=== PATIENT | female | born 1945 | race Caucasian/White ===

== ENCOUNTER → 2016-11-16 | Outpatient (CLI) | payer MEDICARE, OTHER ==
[~2016-11-16] MED LIST: ASPI81TA28 PO; CALC8.5C PO; CHOL100010 PO; ONDA4TAB10 SL; ONDA4TAB46 PO; OXYC-609 PO; PANT40TA PO; PROC1TAB5 PO; SIMV10TA5 PO
--- NOTE | 2016-11-16 16:47 | MAMMOGRAPHY REPORT ---
BILATERAL DIGITAL SCREENING MAMMOGRAM TOMOSYNTHESIS WITH CAD: 11/16/2016 CLINICAL HISTORY: Routine screening. Patient has no complaints. TECHNIQUE: Breast tomosynthesis in addition to standard 2D mammography was performed. Current study was also evaluated with a Computer Aided Detection (CAD) system. COMPARISON: Comparison is made to exams dated: 11/15/2015 mammogram, 11/14/2014 mammogram, 12/11/2014 aspiration, 11/13/2013 mammogram, 11/11/2012 mammogram, and 11/11/2011 mammogram - [facility]. BREAST COMPOSITION: The tissue of both breasts is heterogeneously dense, which may obscure small ma sses. FINDINGS: There are scattered coarse, round and punctate microcalcifications throughout the breasts. No new suspicious mass, architectural distortion or cluster of microcalcifications is seen. IMPRESSION: ACR BI-RADS CATEGORY 1: NEGATIVE There is no mammographic evidence of malignancy. A 1 year screening mammogram is recommended. The p atient will receive written notification of the results. Approximately 10% of breast cancers are not detected with mammography. A negative mammographic repor t should not delay biopsy if a clinically suggestive mass is present. Dania Thomson M.D. ay/:11/16/2016 16:23:41 Aircraft Cleaner: Yamel LOPEZ([place])(M), [facility] letter sent: Normal 1/2 BI-RADS Code: ACR BI-RADS Category 1: Negative
== END | disposition home or self-care (01) ==
LOC: C.MAMM 10:21
PROVIDERS: ATTEND Obstetrics & Gynecology
DX: Z12.31 Encounter for screening mammogram for malignant neoplasm of breast (principal)

== ENCOUNTER 2016-12-26 11:52 | Emergency (ER) | payer MEDICARE, OTHER ==
[~2016-12-26] VITALS: Ht 167.6 cm; Wt 62.8 kg
[~2016-12-26 11:52] MED LIST changes: -ONDA4TAB10 SL; -OXYC-609 PO; -PROC1TAB5 PO
[2016-12-26 11:54] VITALS: TEMP 36.5; Ht 167.6 cm; Wt 62.8 kg
[2016-12-26] MEDS ORDERED: PROC1TAB5 PO (12:01)
[2016-12-26] MEDS ORDERED: OXYC-609 PO (12:04)
[2016-12-26] MEDS ORDERED: ONDANSETRON INJ 2 MG/ML 2 ML VIAL IV STA (12:22)
[2016-12-26] MEDS ORDERED: SODIUM CHLORIDE 0.9% 1000ML 1,000 ML IV STA ×2 (12:22→14:05)
[2016-12-26] MEDS ORDERED: SODIUM CHLORIDE 0.9% 1000ML 1,000 ML IV ONE (12:22)
--- NOTE | 2016-12-26 12:38 | EMERGENCY ROOM VISIT NOTE ---
History Report prepared by Gregorio: Nikolas Genao Under the Supervision of: Dr. Marlon Osorio M.D. First contact with patient: 12:14 Chief Complaint: VOMITING Stated Complaint: DRY HEAVES History of Present Illness The patient is a 71 year old female who presents to the Emergency Room with complaints of recurrent vomiting for the past four days. The patient started feeling nauseous and dry heaving four nights ago. The patient was feeling fine the next day until the nighttime when she started vomiting. The patient did not vomit two days ago but started to vomit again last night. The patient also complains of intermittent diarrhea and upper abdominal pain. She had Compazine at midnight as well as Oxycodone and Protonix. The patient has been to the ED before for intractable vomiting. She was last here in July. The patient's vomit has been bile-like. The patient denies any headaches, chest pain, shortness of breath, coughing, black or blood stools or vomit, or urinary symptoms. Specifically denies dysuria or hematuria or back pain The patient has a history of Mantle Cell Lymphoma. She is not currently on chemotherapy but was last treated over one year ago. She was last scoped in November which showed that her cancer was dormant. Source of History: patient, spouse/significant other Onset: four days ago Position: other (GI) Quality: other (vomiting) Timing: other (recurrent) Associated Symptoms: + abdominal pain, + diarrhea, + nausea, No SOB, No chest pain, No cough, No headache, No hematochezia, No melena, No urinary symptoms Review of Systems See HPI for pertinent positives & negatives. A total of 10 systems reviewed and were otherwise negative. Past Medical & Surgical Medical Problems: (1) Gall bladder disease (2) Gallbladder disease (3) Stomach problems Surgical Problems: (1) H/O: hysterectomy (2) History of lumpectomy of both breasts Old medical records were reviewed. Nurse's notes were reviewed and I agree with. Family History Cancer Gallbladder disease Heart disease Social History Smoking Status: Never Smoker Alcohol Use: none Drug Use: none Marital Status: Housing Status: lives with family Occupation Status: employed Current/Historical Medications Scheduled Aspirin (Aspirin Ec), 81 MG PO Q2D Calcium W/ Vitamins D & K (Viactiv), 1 DOSE PO BID Cholecalciferol (Vitamin D), 1,000 INTER.UNIT PO DAILY Ondasetron Odt (Zofran Odt), 4 MG SL Q6H Pantoprazole (Protonix), 40 MG PO DAILY Simvastatin (Zocor), 10 MG PO HS Scheduled PRN Ondansetron Hcl (Zofran), 4 MG PO Q8H PRN for Nausea Oxycodone HCl (Oxycodone HCl), 5 MG PO Q6 PRN for Pain Prochlorperazine Maleate (Compazine), 10 MG PO Q6H PRN for Nausea Allergies Coded Allergies: Morphine (Unverified Allergy, Severe, SHUT INTESTINES DOWN, 12/26/16) Tramadol (Verified Adverse Reaction, Intermediate, GI SYMPTOMS, 12/26/16) Physical Exam Vital Signs Date Time Temp Pulse Resp B/P Pulse Ox O2 Delivery O2 Flow Rate FiO2 12/26/16 15:25 88 18 145/67 98 12/26/16 11:54 36.5 69 18 172/86 98 Room Air Physical Exam General: Non ill-appearing older female, holding emesis bag, otherwise in no acute distress. HEENT: Normal cephalic atraumatic. Pupils are equal round and reactive to light. Extraocular movements are intact. Oropharynx is pink with moist mucous membranes. No swelling of the mouth lips or tongue. Neck: Supple with a midline trachea. No meningeal signs or stiffness, no JVD or bruits. No Stridor. Chest: Clear to auscultation bilaterally. No wheezes or rhonchi. No increased work of breathing. Heart: regular rate and rhythm. Abdomen: Soft nontender, nondistended without rebound guarding or rigidity. Extremities: No cyanosis clubbing or edema. No calf tenderness or assymetry Spine/Back. Non tender to palpation. No CVA tenderness Skin: Good turgor without rashes. Neurologic exam: Cranial nerves two through 12 are intact. Motor and sensation are intact and symmetrical throughout. Medical Decision & Procedures Laboratory Results 12/26/16 12:40 Red Blood Count 4.88, Mean Corpuscular Volume 87.1, Mean Corpuscular Hemoglobin 29.7, Mean Corpuscular Hemoglobin Concent 34.1, Mean Platelet Volume 8.9, Neutrophils (%) (Auto) 87.7, Lymphocytes (%) (Auto) 9.9, Monocytes (%) (Auto) 2.0, Eosinophils (%) (Auto) 0.0, Basophils (%) (Auto) 0.1, Neutrophils # (Auto) 6.91, Lymphocytes # (Auto) 0.78, Monocytes # (Auto) 0.16, Eosinophils # (Auto) 0.00, Basophils # (Auto) 0.01 12/26/16 12:40 Test 12/26/16 12:40 12/26/16 12:50 12/26/16 13:20 White Blood Count 7.88 K/uL (4.8-10.8) Red Blood Count 4.88 M/uL (4.2-5.4) Hemoglobin 14.5 g/dL (12.0-16.0) Hematocrit 42.5 % (37-47) Mean Corpuscular Volume 87.1 fL (80-100) Mean Corpuscular Hemoglobin 29.7 pg (25-34) Mean Corpuscular Hemoglobin Concent 34.1 g/dl (32-36) Platelet Count 313 K/uL (130-400) Mean Platelet Volume 8.9 fL (7.4-10.4) Neutrophils (%) (Auto) 87.7 % Lymphocytes (%) (Auto) 9.9 % Monocytes (%) (Auto) 2.0 % Eosinophils (%) (Auto) 0.0 % Basophils (%) (Auto) 0.1 % Neutrophils # (Auto) 6.91 K/uL (1.4-6.5) Lymphocytes # (Auto) 0.78 K/uL (1.2-3.4) Monocytes # (Auto) 0.16 K/uL (0.11-0.59) Eosinophils # (Auto) 0.00 K/uL (0-0.5) Basophils # (Auto) 0.01 K/uL (0-0.2) RDW Standard Deviation 42.6 fL (36.4-46.3) RDW Coefficient of Variation 13.3 % (11.5-14.5) Immature Granulocyte % (Auto) 0.3 % Immature Granulocyte # (Auto) 0.02 K/uL (0.00-0.02) Anion Gap 14.0 mmol/L (3-11) Est Creatinine Clear Calc Drug Dose 58.9 ml/min Estimated GFR () 83.4 Estimated GFR (Non- 72.0 BUN/Creatinine Ratio 17.3 (10-20) Calcium Level 9.7 mg/dl (8.5-10.1) Total Bilirubin 0.5 mg/dl (0.2-1) Direct Bilirubin 0.1 mg/dl (0-0.2) Aspartate Amino Transf (AST/SGOT) 10 U/L (15-37) Alanine Aminotransferase (ALT/SGPT) 22 U/L (12-78) Alkaline Phosphatase 92 U/L (45-117) Total Protein 8.3 gm/dl (6.4-8.2) Albumin 4.5 gm/dl (3.4-5.0) Lipase 140 U/L (73-393) Bedside Troponin I 0.000 ng/ml (0-0.045) Urine Color YELLOW Urine Appearance CLOUDY (CLEAR) Urine pH 6.0 (4.5-7.5) Urine Specific [place] 1.020 (1.000-1.030) Urine Protein 2+ (NEG) Urine Glucose (UA) NEG (NEG) Urine Ketones NEG (NEG) Urine Occult Blood TRACE (NEG) Urine Nitrite POS (NEG) Urine Bilirubin NEG (NEG) Urine Urobilinogen NEG (NEG) Urine Leukocyte Esterase MODERATE (NEG) Urine WBC (Auto) >30 /hpf (0-5) Urine RBC (Auto) 0-4 /hpf (0-4) Urine Hyaline Casts (Auto) 10-30 /lpf (0-5) Urine Epithelial Cells (Auto) 5-10 /lpf (0-5) Urine Bacteria (Auto) 4+ (NEG) Laboratory studies as stated above per my review. Medications Administered Medications (Trade) Dose Ordered Sig/Toshia Route Start Time Stop Time Status Last Admin Dose Admin Sodium Chloride 1,000 ml @ 999 mls/hr Q1H1M STAT IV 12/26/16 12:22 12/26/16 13:22 DC 12/26/16 13:15 999 MLS/HR Sodium Chloride (Nss 1000ml) 1,000 ml @ 200 mls/hr Q5H ONCE IV 12/26/16 12:22 12/26/16 16:00 DC 12/26/16 13:18 200 MLS/HR Ondansetron HCl 4 mg 4 mg NOW STAT IV 12/26/16 12:22 12/26/16 12:24 DC 12/26/16 13:18 4 MG Sodium Chloride (Nss 1000ml) 1,000 ml @ 999 mls/hr Q1H1M STAT IV 12/26/16 14:05 12/26/16 15:05 DC 12/26/16 14:18 999 MLS/HR ECG Indication: vomiting Rate (beats per minute): 74 Rhythm: normal sinus Findings: no acute ischemic change, no ectopy Comparison ECG Date: 2015 Change: no significant change ED Course 1215: Past medical records reviewed. The patient was evaluated in room B8, and a complete history and physical examination were performed. 1222: Zofran 4 mg IV, NSS 1000 ml @ 200 mls/hr, NSS 1000 ml @ 999 mls/hr. 1318: The patient is starting to feel better after Zofran. 1405: The patient will be ready for discharge after another liter of fluids. 1405: NSS 1000 ml @ 999 mls/hr. 1510: Reassessed the patient. Discussed the findings with her. She verbalized understanding and agreement of the treatment plan. The patient is ready for discharge. 1515: Zofran Odt 4 mg PO homepack. Medical Decision Differential diagnosis includes dehydration, gastroenteritis, infection, electrolyte or metabolic abnormality, pancreatitis, ACS. This patient comes in as described above. She was placed in room B8. She's been having vomiting for several days off-and-on. She's been seen several times for this before. She does have a history of mantle cell lymphoma however has not had chemotherapy for a year. Besides feeling nauseous, she looks well. On exam, her abdomen is benign and does not suggest peritonitis. IV access was established was hydrated with 1 L IV normal saline bolus and then hourly rate of normal saline. She was given Zofran 4 mg IV. EKG multiple blood testing was obtained. She was reassessed and clammy. She is feeling much better. She did receive additional liter of normal saline IV. She has no significant electrolyte or metabolic abnormalities. She is nothing to suggest suggest sepsis. She's had no lower abdominal tenderness or urinary symptoms. Her urine does have white cells and bacteria does have some epithelial cells as well and with her being asymptomatic and may be a contaminant. We will culture this. She will rest and drink plenty fluids use Zofran if needed for nausea and return if: increasing pain, fever or chills, worsening of symptoms, any new problems or concerns. Impression Primary Impression: Vomiting Additional Impression: Dehydration Scribe Attestation The scribe's documentation has been prepared under my direction and personally reviewed by me in its entirety. I confirm that the note above accurately reflects all work, treatment, procedures, and medical decision making performed by me. Departure Information Dispostion Home / Self-Care Prescriptions Ondasetron Odt (ZOFRAN ODT) 4 Mg Tab 4 MG SL Q6H for Nausea, #14 TAB Prov: Marlon Osorio M.D. 12/26/16 Referrals Heriberto Keane D.O. (PCP) Forms HOME CARE DOCUMENTATION FORM, IMPORTANT VISIT INFORMATION Patient Instructions My [facility] Additional Instructions Rest. Drink plenty of fluids. Slowly advance her diet. Use Zofran 4 mg under the tongue every 6 hours as needed for nausea or vomiting Return if: Worsening of symptoms, not tolerating fluids, fever or chills, chest pain, shortness of breath, any new problems or concerns. Problem Qualifiers
[2016-12-26 12:51] LABS: BASO % 0.1 %; BASO ABS # 0.01 K/uL (0-0.2); COMPLETE YES; HEMATOCRIT 42.5 % (37-47); IG% 0.3 %; LYMPH % 9.9 %; LYMPH ABS # 0.78 K/uL (1.2-3.4); MEAN CELL VOLUME 87.1 fL (80-100); MEAN CORPUSCULAR HEMOGLOBIN 29.7 pg (25-34); MEAN CORPUSCULAR HGB CONC 34.1 g/dl (32-36); MEAN PLATELET VOLUME 8.9 fL (7.4-10.4); NEUT % 87.7 %; PLATELET COUNT 313 K/uL (130-400); RED BLOOD COUNT 4.88 M/uL (4.2-5.4); WHITE BLOOD COUNT 7.88 K/uL (4.8-10.8)
[2016-12-26 13:11] LABS: BUN/CREATININE RATIO 17.3 (10-20); CALCIUM 9.7 mg/dl (8.5-10.1); CREATININE 0.82 mg/dl (0.60-1.20); POTASSIUM 3.4 mmol/L (3.5-5.1)
[2016-12-26 13:39] LABS: URINE APPEARANCE CLOUDY (CLEAR); URINE BILIRUBIN NEG (NEG); URINE COLOR YELLOW; URINE NITRITE POS (NEG); UROBILINOGEN NEG (NEG)
[2016-12-26 13:40] LABS: MANUAL MICROSCOPIC REQUIRED? NO; REVIEW REQ? NO
[2016-12-26] MEDS ORDERED: ONDA4TAB10 SL (14:37)
[2016-12-26] MEDS ORDERED: ONDANSETRON HOME PACK 4MG OD TAB PO ONE (15:15)
[2016-12-26 15:25] VITALS: BP 145/67; PULSE 88; O2SAT 98
--- NOTE | 2016-12-28 12:05 | Pharmacy Progress Note ---
ED Pharmacist Culture FollowUp Date of Service: Dec 28, 2016. This patient was seen in the ER on 12/26/16 w/ c/o intermittent NVD x 4 days. A UA and urine cx were done. The UA was potentially suggestive of infection (> 30WBC, +LE, +N, 4+ bacteria, 5-10 epis) however the patient denied urinary symptoms (no dysuria, no hematuria, no back pain per note). Abdominal exam also reported to be benign per note. No leukocytosis or fever noted. Although pyuria was present on UA this is not always indicative of UTI. Although Urine Cx grew e coli, there is no indication to treat asymptomatic bacteruria in this patient (indications for treatment = , undergoing urologic procedure, s/p renal xplant or neutropenia). No action required.
== END 2016-12-26 15:30 | disposition home or self-care (01) ==
LOC: C.EDB 11:54
DX: R11.2 Nausea with vomiting, unspecified (principal); E86.0 Dehydration; R19.7 Diarrhea, unspecified; R10.9 Unspecified abdominal pain; Z79.82 Long term (current) use of aspirin; Z79.899 Other long term (current) drug therapy

== ENCOUNTER → 2017-11-17 | Outpatient (CLI) | payer MEDICARE, OTHER ==
[~2017-11-17] MED LIST changes: -ONDA4TAB46 PO; +OXYC-609 PO; -PANT40TA PO; +PROC1TAB5 PO
--- NOTE | 2017-11-17 15:38 | MAMMOGRAPHY REPORT ---
BILATERAL DIGITAL SCREENING MAMMOGRAM TOMOSYNTHESIS WITH CAD: 11/17/2017 CLINICAL HISTORY: Routine screening. Patient has no complaints. TECHNIQUE: Breast tomosynthesis in addition to standard 2D mammography was performed. Current study was also evaluated with a Computer Aided Detection (CAD) system. COMPARISON: Comparison is made to exams dated: 11/16/2016 mammogram, 11/15/2015 mammogram, 06/10/2015 m ammogram, 11/14/2014 mammogram, 11/13/2013 mammogram, and 11/11/2012 mammogram - [facility]. BREAST COMPOSITION: The tissue of both breasts is extremely dense, which lowers the sensitivity of m ammography. FINDINGS: There is an asymmetry in the medial, middle one third of the right breast, best seen on CC tomosynthesis slice 28/47, for which additional spot compression tomosynthesis views and possible ul trasound are recommended. Another asymmetry measuring approximately 16 mm is identified in the later al posterior right breast on CC slice 28/47 that could represent normal overlapping fibroglandular ti ssue although additional spot compression tomosynthesis views and possible ultrasound are recommended . A linear scar marker overlies the right upper outer breast, denoting an area of prior surgery. There are scattered benign-appearing calcifications in the breasts. No other suspicious mass, architectura l distortion or cluster of microcalcifications is seen. IMPRESSION: ACR BI-RADS CATEGORY 0: INCOMPLETE EVALUATION: NEED ADDITIONAL IMAGING EVALUATION The asymmetries in the medial and lateral right breast need additional imaging evaluation. The patient will be called to schedule an appointment. Approximately 10% of breast cancers are not detected with mammography. A negative mammographic report should not delay biopsy if a clinically suggestive mass is present. Dania Thomson M.D. ay/:11/17/2017 13:13:23 Horticultural Manager: Yamel LOPEZ([place])(Raejsh), [facility] letter sent: Addl Imaging 0 BI-RADS Code: ACR BI-RADS Category 0: Incomplete Evaluation: Need Additional Imaging Evaluation
== END | disposition home or self-care (01) ==
LOC: C.MAMM 10:36
PROVIDERS: ATTEND Obstetrics & Gynecology
DX: Z12.31 Encounter for screening mammogram for malignant neoplasm of breast (principal); N64.89 Other specified disorders of breast

== ENCOUNTER → 2017-11-26 | Outpatient (CLI) | payer BC ==
--- NOTE | 2017-11-29 07:40 | MAMMOGRAPHY REPORT ---
UNILATERAL RIGHT DIGITAL DIAGNOSTIC MAMMOGRAM TOMOSYNTHESIS AND TARGETED RIGHT ULTRASOUND: 11/26/2017 CLINICAL HISTORY: Callback from screening mammogram for right breast asymmetries. TECHNIQUE: Breast tomosynthesis in addition to standard 2D mammography was performed. Spot compress ion right CC 2-D and tomosynthesis images were obtained. COMPARISON: Comparison is made to exams dated: 11/17/2017 mammogram, 11/16/2016 mammogram, 11/15/2015 m ammogram, 06/10/2015 mammogram, 12/11/2014 mammogram, and 11/22/2014 mammogram - [facility]. BREAST COMPOSITION: The tissue of the right breast is extremely dense, which lowers the sensitivity of mammography. FINDINGS: The previously described asymmetry seen within the right lateral posterior breast effaces o n the additional spot compression views and is benign and compatible with normal fibroglandular tissu e. The previously described asymmetry seen within the right medial breast on the cc view also efface s to a baseline appearance on the additional spot compression views, and has the appearance of normal fibroglandular tissue on the tomosynthesis images. No discrete mass or architectural distortion is noted in this region on the additional images. Targeted ultrasound was performed of the right medial breast in the region of the medial mammographic asymmetry. The background parenchymal echotexture is heterogeneous which reduces the sensitivity of the ultrasound exam. Sonographically normal tissue is seen in this region, without evidence of a ma ss or other suspicious sonographic abnormality. IMPRESSION: ACR BI-RADS CATEGORY 2: BENIGN, TARGETED ULTRASOUND ACR BI-RADS CATEGORY 2: BENIGN The right breast asymmetries efface on the additional spot compression views, without corresponding s onographic abnormality evident. Findings are benign and compatible with normal fibroglandular tissue . There is no mammographic or targeted sonographic evidence of malignancy. A 1 year screening mammog osvaldo is recommended. The patient has been verbally notified of the results. Approximately 10% of breast cancers are not detected with mammography. A negative mammographic report should not delay biopsy if a clinically suggestive mass is present. Kylah Lutz M.D. /:11/26/2017 09:48:05 Optometric Assistant: Lindy LOPEZ([place])(Rajesh), [facility] letter sent: Normal 1/2 BI-RADS Code: ACR BI-RADS Category 2: Benign Ultrasound BI-RADS: ACR BI-RADS Category 2: Benign
== END | disposition home or self-care (01) ==
LOC: C.MAMM 08:48
PROVIDERS: ATTEND Obstetrics & Gynecology
DX: N64.89 Other specified disorders of breast (principal)

== ENCOUNTER → 2018-06-14 | Outpatient (CLI) | payer MEDICARE, OTHER ==
[~2018-06-14] MED LIST changes: +PROC10TA PO; -PROC1TAB5 PO
== END | disposition home or self-care (01) ==
LOC: C.MAMM 10:15
PROVIDERS: ATTEND Obstetrics & Gynecology
DX: M81.0 Age-related osteoporosis without current pathological fracture (principal); M85.89 Other specified disorders of bone density and structure, multiple sites

== ENCOUNTER 2024-05-09 19:49 | Inpatient (IN) ==
[2024-05-09 20:40] LABS: Alanine Aminotransferase 25 U/L (7-52); Albumin Globulin Ratio 1.2 (0.9-2); Albumin Level 3.5 gm/dl (3.4-5.0); Alkaline Phosphatase 86 U/L (34-104); Anion Gap 10 (3-11); Aspartate Aminotransferase 28 U/L (13-39); BUN Creatinine Ratio 12.9 (10-20); Bilirubin,Total 0.6 mg/dl (0.2-1.0); Blood Urea Nitrogen 15 mg/dl (6-23); Calcium 9.1 mg/dl (8.6-10.3); Carbon Dioxide 21 mmol/L (21-32); Chloride 100 mmol/L (98-107); Est GFR (African American) 51.9 ml/min; Est GFR (Non-African American) 44.7 ml/min; Globulin 2.9 gm/dl (2.5-4.0); Glucose 83 mg/dl (70-99(Fasting)); Potassium 4.2 mmol/L (3.5-5.1); Sodium 131 mmol/L (136-145); Total Protein 6.4 gm/dl (6.0-8.3)
[2024-05-09 20:53] LABS: Hematocrit (blood only) 35.5 % (37.0-47.0); Hemoglobin 11.6 g/dl (12.0-16.0); Mean Corpuscular Hemoglobin 28.2 pg (25.0-34.0); Mean Corpuscular Hgb Conc 32.7 g/dL (32.0-36.0); Mean Corpuscular Volume 86.4 fL (80.0-100.0); Mean Platelet Volume 9.7 fL (9.4-12.4); Platelet Count 361 K/uL (130-400); RDW Coefficient of Variation 15.1 % (11.5-14.5); RDW Standard Deviation 47.9 fL (36.4-46.3); Red Blood Count 4.11 M/uL (4.20-5.40); White Blood Count 22.16 K/ul (4.8-10.8)
[2024-05-09 20:56] LABS: ALC (manual) 12.63 K/uL (1.2-3.4); ANC (manual) 8.42 K/uL (1.4-6.5); Lymphocytes # (manual) 4.88 K/uL (1.2-3.4); Lymphocytes % (manual) 22 %; Monocytes # (manual) 1.11 K/uL (0.11-0.59); Monocytes % (manual) 5 %; Neutrophils # (manual) 8.42 K/uL (1.40-6.50); Neutrophils % (manual) 38 %; RBC Morphology Unremarkable; Reactive Lymphocytes # (manual) 7.76 K/uL; Reactive Lymphocytes % (manual) 35 %
[2024-05-09 21:14] LABS: Appearance Urine Cloudy (Clear); Bacteria Urine Automated 4+ (None Seen); Bilirubin Urine Negative (Negative); Blood Urine Trace (Negative); Color Urine Yellow; Epithelial Cell Urine Auto 0-2 /hpf (0-2); Glucose Urine UA Negative (Negative); Ketones Urine Negative (Negative); Leukocyte Esterase Urine 3+ (Negative); Nitrite Urine Negative (Negative); Protein Urine Negative (Negative); RBC Urine Automated 0-2 /hpf (0-2); Specific Gravity Urine 1.005 (1.000-1.030); Urobilinogen Urine Negative (Negative); WBC Urine Automated >50 /hpf (0-5)
[2024-05-09 21:22] LABS: Lyme Screen Rflx Confirmation Positive (Negative)
[2024-05-09 21:56] LABS: Lyme Ab IgG 2nd Tier Confirm Positive (Negative); Lyme Ab IgM 2nd Tier Confirm Positive (Negative)
--- NOTE | 2024-05-09 23:00 | Emergency Department Note ---
History of Present Illness General Chief complaint: Pain (Generalized) Stated complaint: BODYACHES/PAINS, BACK/ARM PAIN, SOME SOB Time Seen by Provider: 05/09/24 22:31 History of Present Illness Maximum Pain Intensity: 5 This is a 79-year-old female presenting to the emergency department for evaluation of full body aches, fatigue, and weakness for the past 2 weeks. Patient describes discomfort in her head, back, and extremities. No injuries or trauma. No fevers or chills. Patient states that she did have tick bites about 2 weeks ago, and feels that she was able to remove the ticks. She has a history of mantle cell lymphoma and is on nightly Jaypirca. She feels like she has been able to eat and drink as normal. She rates her discomfort a 5/10. Home Medications Medication Instructions Recorded Confirmed Type simvastatin 10 mg tablet 10 mg PO HS 10/22/18 05/09/24 History pantoprazole 40 mg tablet,delayed 40 mg PO QAM 12/26/19 05/09/24 History release allopurinol 100 mg tablet 100 mg PO QAM 04/03/24 05/09/24 History calcium 650 mg-vitamin D3 12.5 1 tab PO BID 04/03/24 05/09/24 History mcg-vitamin K 40 mcg chewable tablet (Viactiv) cholecalciferol (vitamin D3) 50 50 mcg PO DAILY 04/03/24 05/09/24 History mcg (2,000 unit) capsule pirtobrutinib 100 mg tablet 200 mg PO HS 04/03/24 05/09/24 History (Jaypirca) Allergies Allergy/AdvReac Type Severity Reaction Status Date / Time morphine Allergy Severe SHUT Verified 05/09/24 23:01 INTESTINES DOWN tramadol AdvReac Intermediate GI SYMPTOMS Verified 05/09/24 23:01 Past Med/Surg History Problem List (Updated 05/10/24 @ 01:16 by Sukh Gifford PA-C) UTI (urinary tract infection) (Acute) Lyme disease (Acute) Generalized pain (Acute) Lesion of tongue Family history of breast cancer Breast cancer screening other than mammogram Extremely dense tissue of both breasts on mammography S/P cholecystectomy Vitamin D deficiency Chronic kidney disease with active medical management without dialysis, stage 3 (moderate) Hypercholesterolemia (Chronic) Encounter for annual routine gynecological examination Failure of outpatient treatment (Acute) Hypokalemia (Acute) Stomach problems (Chronic) Mantle cell lymphoma (Acute) diagnosed 2012--chemo Medical History History of COVID-19 (08/2023) no hosp; resolved Mantle cell lymphoma diagnosed 2012--chemo; takes Jaypirca daily Hypercholesteremia Vitamin D deficiency Acid reflux controlled Restless leg syndrome Slow to wake up after anesthesia CKD (chronic kidney disease), stage III Osteoporosis Osteoarthritis Migraine Hyperlipidemia Left ureteral calculus hx Surgical History History of laryngoscopy microlaryngoscopy with direct biopsy-04/05/24-Dr. Kothari History of needle biopsy left breast--benign Status post cystoscopy with ureteral stent placement History of total hysterectomy with bilateral salpingo-oophorectomy (BSO) h/o endometriosis History of colonoscopy History of esophagogastroduodenoscopy (EGD) History of cholecystectomy 2014 History of nasal septoplasty History of bilateral cataract extraction History of breast lump removal x2 on right breast--benign-1994, 2000 History of surgical removal of ganglion cyst left wrist Family History Father Heart disease Mother Heart disease Sister Breast cancer Brother Prostate cancer Other No family history of adverse response to anesthesia No family history of bleeding disorder No known problems Denies family history of Ovarian cancer Myocardial infarction Colorectal cancer Social History Smoking Status: Never smoker Second Hand Exposure: Yes (father smoked); Do You Dip or Chew Tobacco: No; Hx Alcohol Use: No Hx Substance Use: No Preferred Language: Panamanian Communication Ability: Effective Visual Impairment: No Limitations Hearing Ability: Normal Offset Duplicating Machine Operator Required: No Beliefs That Will Affect Care: None marital status: Current Living Situation: Spouse 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 status: retired 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 Feels Safe at Home: Yes Safety Concerns: Feels Safe At This Time Diet: regular caffeine: Yes (3-4 coffee daily) Seatbelt Use: always Do you think of yourself as: straight/heterosexual Gender Identity: Female Assistive Devices: Walker Review of Systems A total of 10 systems reviewed and were otherwise negative Physical Exam Vital Signs Vital Signs - 24 hr 05/09/24 19:54 05/09/24 21:27 05/09/24 21:36 Temperature 36.7 C Temperature Source Temporal Artery Scan Pulse Rate 100 H 90 Pulse Rate [Apical] 93 H Pulse Rhythm [Apical] Pulse Strength [Apical] Respiratory Rate 18 18 Respiratory Effort / Characteristics Non-Labored Spontaneous Non-Labored Respiratory Depth Normal Normal Respiratory Pattern Regular Blood Pressure 112/65 Blood Pressure [Left Arm] 128/72 Blood Pressure Mean 80 Blood Pressure Mean [Left Arm] 90 Blood Pressure Position [Left Arm] Pulse Oximetry 100 99 Oxygen Delivery Method Room Air Room Air Sepsis Recent Fever Within 48 Hours No Sepsis New/Unexplained Change in Mental Status No Sepsis Action Taken by Nursing No Action Required 05/09/24 23:00 Temperature Temperature Source Pulse Rate Pulse Rate [Apical] 102 H Pulse Rhythm [Apical] Regular Pulse Strength [Apical] Normal Respiratory Rate 22 Respiratory Effort / Characteristics Non-Labored Spontaneous Respiratory Depth Normal Respiratory Pattern Regular Blood Pressure Blood Pressure [Left Arm] 127/65 Blood Pressure Mean Blood Pressure Mean [Left Arm] 85 Blood Pressure Position [Left Arm] Lying Pulse Oximetry 97 Oxygen Delivery Method Room Air Sepsis Recent Fever Within 48 Hours Sepsis New/Unexplained Change in Mental Status Sepsis Action Taken by Nursing VITALS: Vitals are noted on the nurse's note and reviewed by myself. Vital signs stable. GENERAL: Elderly white female who is pleasant and cooperative. She does not appear toxic. HEAD: Normocephalic atraumatic. NECK: Supple without nuchal rigidity. No lymphadenopathy. No thyromegaly. Cervical spine is nontender. HEART: Regular rate and rhythm without murmurs gallops or rubs. LUNGS: Clear to auscultation bilaterally without wheezes, rales or rhonchi. No retractions or accessory muscle use. ABDOMEN: Positive normal bowel sounds x 4. Soft, nontender, without masses or organomegaly. No guarding or rebound tenderness. MUSCULOSKELETAL: No muscle atrophy, erythema, or edema noted. Full range of motion in all extremities. Course Administered Medications Doxycycline Hyclate 100 mg/ (Dextrose) 100 mls @ 50 mls/hr IV NOW STA Stop: 05/10/24 02:01 Last Admin: 05/10/24 01:10 Dose: 50 mls/hr Documented By: GND Discontinued Medications Sodium Chloride (Nss) 1,000 mls @ 999 mls/hr IV .Q1H1M LAURA Stop: 05/10/24 00:00 Last Infusion: 05/10/24 00:40 Dose: Infused Documented By: Admin: 05/09/24 23:08 Dose: 999 mls/hr Documented By: JESSICA Ceftriaxone Sodium (Rocephin) 1,000 mg in 50 mls @ 100 mls/hr IV NOW STA Stop: 05/09/24 23:16 Last Infusion: 05/10/24 00:39 Dose: Infused Documented By: Admin: 05/09/24 23:31 Dose: 100 mls/hr Documented By: JESSICA Medical Decision Making Differential Diagnosis Differential diagnosis: Etiologies such as viral syndrome, otitis, pharyngitis, pneumonia, influenza, meningitis, urinary tract infection, septic arthritis, soft tissue infectious process, intra-abdominal process, sepsis, bacteremia, as well as others were entertained. Laboratory Data 05/09/24 20:09 05/09/24 20:09 Lab Results 05/09/24 05/09/24 05/09/24 Range/Units 20:09 20:10 23:15 WBC 22.16 H (4.8-10.8) K/ul RBC 4.11 L (4.20-5.40) M/uL Hgb 11.6 L (12.0-16.0) g/dl Hct 35.5 L (37.0-47.0) % MCV 86.4 (80.0-100.0) fL MCH 28.2 (25.0-34.0) pg MCHC 32.7 (32.0-36.0) g/dL RDW Std Deviation 47.9 H (36.4-46.3) fL RDW Coeff of Micki 15.1 H (11.5-14.5) % Plt Count 361 (130-400) K/uL MPV 9.7 (9.4-12.4) fL Neutrophils % (Manual) 38 % Lymphocytes % (Manual) 22 % Reactive Lymphs % (Man) 35 % Monocytes % (Manual) 5 % Neutrophils # (Manual) 8.42 H (1.40-6.50) K/uL Total Absolute Neuts 8.42 H (1.4-6.5) K/uL Lymphocytes # (Manual) 4.88 H (1.2-3.4) K/uL Reactive Lymphs # 7.76 K/uL Total Abs Lymphocytes 12.63 H (1.2-3.4) K/uL Monocytes # (Manual) 1.11 H (0.11-0.59) K/uL RBC Morphology Unremarkable Sodium 131 L (136-145) mmol/L Potassium 4.2 (3.5-5.1) mmol/L Chloride 100 (98-107) mmol/L Carbon Dioxide 21 (21-32) mmol/L Anion Gap 10 (3-11) BUN 15 (6-23) mg/dl Creatinine 1.16 (0.6-1.2) mg/dl Est Cr Clr Drug Dosing Not Reportable Est GFR ( Amer) 51.9 ml/min Est GFR (Non-Af Amer) 44.7 ml/min BUN/Creatinine Ratio 12.9 (10-20) Glucose 83 (70-99(Fasting)) mg/dl Lactate 1.3 (0.4-2.0) mmol/L Calcium 9.1 (8.6-10.3) mg/dl Total Bilirubin 0.6 (0.2-1.0) mg/dl AST 28 (13-39) U/L ALT 25 (7-52) U/L Alkaline Phosphatase 86 (34-104) U/L Total Protein 6.4 (6.0-8.3) gm/dl Albumin 3.5 (3.4-5.0) gm/dl Globulin 2.9 (2.5-4.0) gm/dl Albumin/Globulin Ratio 1.2 (0.9-2) Urine Color Yellow Urine Appearance Cloudy A (Clear) Urine pH 7.0 (4.5-7.5) Ur Specific [place] 1.005 (1.000-1.030) Urine Protein Negative (Negative) Urine Glucose (UA) Negative (Negative) Urine Ketones Negative (Negative) Urine Blood Trace H (Negative) Urine Nitrite Negative (Negative) Urine Bilirubin Negative (Negative) Urine Urobilinogen Negative (Negative) Ur Leukocyte Esterase 3+ H (Negative) Urine WBC (Auto) >50 H (0-5) /hpf Urine RBC (Auto) 0-2 (0-2) /hpf U Hyaline Cast (Auto) 3-5 H (0-2) /lpf U Epithel Cells (Auto) 0-2 (0-2) /hpf Urine Bacteria (Auto) 4+ H (None Seen) Lyme Disease Screen Positive H (Negative) Lyme Tier 2 IgG Confirm Positive H (Negative) Lyme Tier 2 IgM Confirm Positive H (Negative) MDM Narrative Physical exam and history were performed. Nursing notes, EMR, and Medication List were personally reviewed. No social concerns were identified as barriers to patients care. Patient appears to have pain and discomfort over the past 2 weeks. She does have history of cancer. IV access was established and labs were obtained. Case discussed with my attending. Patient's blood work is as above and was reviewed. She does have a markedly elevated white count of 22,000. She does not have significant anemia or gross electrolyte imbalance. Both acute and long-term Lyme testing is POSITIVE. Urine is suggestive of infection. Lactic is negative with blood and urine cultures pending. Overall escalation of care is felt to be necessary for the patient. She is considered immune compromised and has a significant white count. She was given IV Rocephin here in the ER, as well as IV fluids. The case was discussed with the on-call hospitalist team who agreed to evaluate the patient here in the ER. Please see their dictation for further patient course, plan, and disposition. The chart was completed utilizing [employer] Speech Voice Recognition Software. Grammatical errors, random word insertions, pronoun errors, and incomplete sentences are an occasional consequence of this system due to software limitations, ambient noise, and hardware issues. Any formal questions or concerns about the content, text, or information contained within the body of this dictation should be directly addressed to the provider for clarification. . Impression & Plan Generalized pain, Lyme disease, UTI (urinary tract infection) Discharge Plan Visit Data Chief Complaint: Pain (Generalized) Stated Complaint: BODYACHES/PAINS, BACK/ARM PAIN, SOME SOB ED Provider: Geneva Jordan ED Midlevel Provider: Sukh Gifford Discharge Problem: Generalized pain, Lyme disease, UTI (urinary tract infection) Patient Disposition: Admitted As Inpatient Discharge Instructions Interventions: ED Discharge Assessment Last Done: 05/10/24 00:11
[2024-05-09] MEDS: SODIUM CHLORIDE 0.9% 1,000 ML IV SCH (23:08)
[2024-05-09] MEDS: cefTRIAXone SODIUM 1,000 MG/50 ML BAG IV STA (23:31)
--- NOTE | 2024-05-09 23:45 | History & Physical Report ---
Date of Service May 09, 2024 Assessment & Plan (1) Lyme disease: (2) UTI (urinary tract infection): (3) Generalized pain: (4) Vitamin D deficiency: (5) Chronic kidney disease with active medical management without dialysis, stage 3 (moderate): (6) Mantle cell lymphoma: Plan Lyme disease- Both IgG and IgM positive [place], and does have a dog which goes indoors and outdoors No known tick exposure, but does have risk as noted Place on ceftriaxone [address] on doxycycline 100 mg IV every 12 hours Acetaminophen 1 g by mouth every 8 hours as needed for mild pain or fever Toradol 15 mg IV every 6 hours as needed for moderate pain Urinary tract infection- Follow urine culture and sensitivity NSS + KCl 20 mill equivalents at 80 mL/h x 1 L Ceftriaxone and doxycycline as noted above GERD- Continue pantoprazole 40 mg daily Mantle cell lymphoma- Continue pirtobrutinib 200 mg at bedtime History of Present Illness Chief Complaint: The patient presents to the emergency department with complaint of progressive fatigue, generalized weakness and all over body aches that initially began 2 weeks ago Primary Care Provider: Heriberto Keane The patient is a 79-year-old female with a past medical history including vitamin D deficiency, CKD stage III, hypercholesterolemia, GERD, and mantle cell lymphoma on pirtobrutinib. She presents to the emergency department with 2 weeks of progressively worsening fatigue, generalized weakness and all over body aches. Allergies Allergy/AdvReac Type Severity Reaction Status Date / Time morphine Allergy Severe SHUT Verified 05/09/24 23:01 INTESTINES DOWN tramadol AdvReac Intermediate GI SYMPTOMS Verified 05/09/24 23:01 Home Medications Medication Instructions Recorded Confirmed Type simvastatin 10 mg tablet 10 mg PO HS 10/22/18 05/09/24 History pantoprazole 40 mg tablet,delayed 40 mg PO QAM 12/26/19 05/09/24 History release allopurinol 100 mg tablet 100 mg PO QAM 04/03/24 05/09/24 History calcium 650 mg-vitamin D3 12.5 1 tab PO BID 04/03/24 05/09/24 History mcg-vitamin K 40 mcg chewable tablet (Viactiv) cholecalciferol (vitamin D3) 50 50 mcg PO DAILY 04/03/24 05/09/24 History mcg (2,000 unit) capsule pirtobrutinib 100 mg tablet 200 mg PO HS 04/03/24 05/09/24 History (Jaypirca) Past Med/Surg History Problem List (Updated 05/10/24 @ 01:16 by Sukh Gifford PA-C) UTI (urinary tract infection) (Acute) Lyme disease (Acute) Generalized pain (Acute) Lesion of tongue Family history of breast cancer Breast cancer screening other than mammogram Extremely dense tissue of both breasts on mammography S/P cholecystectomy Vitamin D deficiency Chronic kidney disease with active medical management without dialysis, stage 3 (moderate) Hypercholesterolemia (Chronic) Encounter for annual routine gynecological examination Failure of outpatient treatment (Acute) Hypokalemia (Acute) Stomach problems (Chronic) Mantle cell lymphoma (Acute) diagnosed 2012--chemo Medical History History of COVID-19 (08/2023) no hosp; resolved Mantle cell lymphoma diagnosed 2012--chemo; takes Jaypirca daily Hypercholesteremia Vitamin D deficiency Acid reflux controlled Restless leg syndrome Slow to wake up after anesthesia CKD (chronic kidney disease), stage III Osteoporosis Osteoarthritis Migraine Hyperlipidemia Left ureteral calculus hx Surgical History History of laryngoscopy microlaryngoscopy with direct biopsy-04/05/24-Dr. Kothari History of needle biopsy left breast--benign Status post cystoscopy with ureteral stent placement History of total hysterectomy with bilateral salpingo-oophorectomy (BSO) h/o endometriosis History of colonoscopy History of esophagogastroduodenoscopy (EGD) History of cholecystectomy 2014 History of nasal septoplasty History of bilateral cataract extraction History of breast lump removal x2 on right breast--benign-2000 History of surgical removal of ganglion cyst left wrist Family History Father Heart disease Mother Heart disease Sister Breast cancer Brother Prostate cancer Other No family history of adverse response to anesthesia No family history of bleeding disorder No known problems Denies family history of Ovarian cancer Myocardial infarction Colorectal cancer Social History Smoking Status: Never smoker Second Hand Exposure: Yes (father smoked); Do You Dip or Chew Tobacco: No; Hx Alcohol Use: No Hx Substance Use: No Preferred Language: Irish Communication Ability: Effective Visual Impairment: No Limitations Hearing Ability: Normal Caretaker Grounds Required: No Beliefs That Will Affect Care: None marital status: Current Living Situation: Spouse 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 status: 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 Feels Safe at Home: Yes Safety Concerns: Feels Safe At This Time Diet: regular caffeine: Yes (3-4 coffee daily) Seatbelt Use: always Do you think of yourself as: straight/heterosexual Gender Identity: Female Assistive Devices: Walker Review of Systems Review of Systems: The patient denies chest pain, palpitations, shortness of breath, dyspnea on exertion, cough, lower extremity swelling, sore throat, fevers, chills, sweats, nausea, vomiting, diarrhea , constipation, abdominal pain, pelvic pain, blood in urine or stool, dysuria, urinary frequency or urgency, lightheadedness, dizziness, headache, memory loss, loss of consciousness, rash, abnormal bruising or bleeding, focal weakness, numbness or tingling in arms or legs, or night sweats. The review of systems is otherwise negative other than for that already noted above, and at least 10 systems have been reviewed. Physical Exam Physical Exam: The patient is awake, alert and oriented 3, well developed and well nourished, normocephalic and atraumatic, lying in bed and in no acute distress. HEENT--PERRL, EOMI, mucous membranes and oropharynx mildly dry. Neck--supple. No JVD. No bruits. Thyroid normal, trachea midline, no adenopathy. Heart--normal S1 and S2. No murmurs, rubs or gallops. Lungs--clear bilaterally, no respiratory distress, no accessory muscle use. Abdomen--normal bowel sounds and soft. Nontender. Nondistended, no hernias or masses, no organomegaly. Extremities--no cyanosis or clubbing. No edema. Dermatologic--normal skin turgor, normal color, no abnormal lymph nodes, no rash. Neurologic--cranial nerves II through XII grossly intact. Rheumatologic--range of motion exam limited by generalized joint and muscle pains Psychiatric--normal affect. Results & Data Results & Data Vital Signs (Past 12 Hours) Vital Signs Temp Pulse Pulse Resp BP BP Pulse Ox 05/09/24 21:36 90 05/09/24 21:27 93 H 18 128/72 99 05/09/24 19:54 36.7 C 100 H 18 112/65 100 O2 Del Method 05/09/24 21:36 05/09/24 21:27 Room Air 05/09/24 19:54 Room Air Laboratory Results Laboratory Results WBC 22.16 K/ul (4.8-10.8) H 05/09/24 20:09 RBC 4.11 M/uL (4.20-5.40) L 05/09/24 20:09 Hgb 11.6 g/dl (12.0-16.0) L 05/09/24 20:09 Hct 35.5 % (37.0-47.0) L 05/09/24 20:09 MCV 86.4 fL (80.0-100.0) 05/09/24 20:09 MCH 28.2 pg (25.0-34.0) 05/09/24 20:09 MCHC 32.7 g/dL (32.0-36.0) 05/09/24 20:09 RDW Std Deviation 47.9 fL (36.4-46.3) H 05/09/24 20:09 RDW Coeff of Micki 15.1 % (11.5-14.5) H 05/09/24 20:09 Plt Count 361 K/uL (130-400) 05/09/24 20:09 MPV 9.7 fL (9.4-12.4) 05/09/24 20:09 Neutrophils % (Manual) 38 % 05/09/24 20:09 Lymphocytes % (Manual) 22 % 05/09/24 20:09 Reactive Lymphs % (Man) 35 % 05/09/24 20:09 Monocytes % (Manual) 5 % 05/09/24 20:09 Neutrophils # (Manual) 8.42 K/uL (1.40-6.50) H 05/09/24 20:09 Total Absolute Neuts 8.42 K/uL (1.4-6.5) H 05/09/24 20:09 Lymphocytes # (Manual) 4.88 K/uL (1.2-3.4) H 05/09/24 20:09 Reactive Lymphs # 7.76 K/uL 05/09/24 20:09 Total Abs Lymphocytes 12.63 K/uL (1.2-3.4) H 05/09/24 20:09 Monocytes # (Manual) 1.11 K/uL (0.11-0.59) H 05/09/24 20:09 RBC Morphology Unremarkable 05/09/24 20:09 Sodium 131 mmol/L (136-145) L 05/09/24 20:09 Potassium 4.2 mmol/L (3.5-5.1) 05/09/24 20:09 Chloride 100 mmol/L (98-107) 05/09/24 20:09 Carbon Dioxide 21 mmol/L (21-32) 05/09/24 20:09 Anion Gap 10 (3-11) 05/09/24 20:09 BUN 15 mg/dl (6-23) 05/09/24 20:09 Creatinine 1.16 mg/dl (0.6-1.2) 05/09/24 20:09 Est Cr Clr Drug Dosing Not Reportable 05/09/24 20:09 Est GFR ( Amer) 51.9 ml/min 05/09/24 20:09 Est GFR (Non-Af Amer) 44.7 ml/min 05/09/24 20:09 BUN/Creatinine Ratio 12.9 (10-20) 05/09/24 20:09 Glucose 83 mg/dl (70-99(Fasting)) 05/09/24 20:09 Lactate 1.3 mmol/L (0.4-2.0) 05/09/24 23:15 Calcium 9.1 mg/dl (8.6-10.3) 05/09/24 20:09 Total Bilirubin 0.6 mg/dl (0.2-1.0) 05/09/24 20:09 AST 28 U/L (13-39) 05/09/24 20:09 ALT 25 U/L (7-52) 05/09/24 20:09 Alkaline Phosphatase 86 U/L (34-104) 05/09/24 20:09 Total Protein 6.4 gm/dl (6.0-8.3) 05/09/24 20:09 Albumin 3.5 gm/dl (3.4-5.0) 05/09/24 20:09 Globulin 2.9 gm/dl (2.5-4.0) 05/09/24 20:09 Albumin/Globulin Ratio 1.2 (0.9-2) 05/09/24 20:09 Urine Color Yellow 05/09/24 20:10 Urine Appearance Cloudy (Clear) A 05/09/24 20:10 Urine pH 7.0 (4.5-7.5) 05/09/24 20:10 Ur Specific [place] 1.005 (1.000-1.030) 05/09/24 20:10 Urine Protein Negative (Negative) 05/09/24 20:10 Urine Glucose (UA) Negative (Negative) 05/09/24 20:10 Urine Ketones Negative (Negative) 05/09/24 20:10 Urine Blood Trace (Negative) H 05/09/24 20:10 Urine Nitrite Negative (Negative) 05/09/24 20:10 Urine Bilirubin Negative (Negative) 05/09/24 20:10 Urine Urobilinogen Negative (Negative) 05/09/24 20:10 Ur Leukocyte Esterase 3+ (Negative) H 05/09/24 20:10 Urine WBC (Auto) >50 /hpf (0-5) H 05/09/24 20:10 Urine RBC (Auto) 0-2 /hpf (0-2) 05/09/24 20:10 U Hyaline Cast (Auto) 3-5 /lpf (0-2) H 05/09/24 20:10 U Epithel Cells (Auto) 0-2 /hpf (0-2) 05/09/24 20:10 Urine Bacteria (Auto) 4+ (None Seen) H 05/09/24 20:10 Lyme Disease Screen Positive (Negative) H 05/09/24 20:09 Lyme Tier 2 IgG Confirm Positive (Negative) H 05/09/24 20:09 Lyme Tier 2 IgM Confirm Positive (Negative) H 05/09/24 20:09 Code Status & VTE Plan Code Status Full code VTE Prophylaxis Plan VTE Prophylaxis will be ordered: Yes PG Care Time/CCT Total # of Minutes Spent Total Time Spent with Patient: Total time spent is greater than 50% in coordination of care (as documented) at patient's floor/unit and/or counseling patient: Coding Level of Care Code 06520 INT INP/OBS CARE 3/75MIN Diagnoses Lyme disease A69.20 UTI (urinary tract infection) N39.0 Generalized pain R52 Vitamin D deficiency E55.9 Chronic kidney disease with active medical management without dialysis, stage 3 (moderate) N18.30 Mantle cell lymphoma C83.10
[2024-05-09] MEDS ORDERED: ACETAMINOPHEN 500 MG TAB PO PRN (23:52)
[2024-05-09] MEDS ORDERED: KETOROLAC TROMETHAMINE 15 MG/ML VIAL IV PRN (23:52)
[2024-05-10] MEDS ORDERED: ONDANSETRON INJ 2 MG/ML 2 ML VIAL IV PRN (00:38)
[2024-05-10] MEDS ORDERED: ACETAMINOPHEN 325 MG TAB PO PRN (00:38)
[2024-05-10] MEDS: DOXYCYCLINE HYCLATE 100 MG in DEXTROSE 5% MINI-B 100 ML IV STA (01:10)
[2024-05-10] MEDS: NSS + 20MEQ KCL 20 MEQ/1,000 ML BAG IV SCH (01:39)
[2024-05-10] MEDS: cefTRIAXone SODIUM 1,000 MG/50 ML BAG IV STA (01:42)
[2024-05-10] MEDS: allopurinoL 100 MG TAB PO SCH (08:09)
[2024-05-10] MEDS: CHOLECALCIFEROL 25 MCG (1000 UNITS) TAB PO SCH (08:09)
[2024-05-10] MEDS: CALCIUM CARBONATE 1250MG TAB PO SCH (08:10)
[2024-05-10] MEDS: HEPARIN SOD 5,000 UNIT/0.5 ML VIAL SQ SCH (08:10)
[2024-05-10] MEDS: PANTOprazole 40 MG TAB PO SCH (08:10)
--- NOTE | 2024-05-10 10:04 | Hospitalist Progress Note ---
Date of Service May 10, 2024 Assessment & Plan (1) Lyme disease: (2) UTI (urinary tract infection): (3) Generalized pain: (4) Vitamin D deficiency: (5) Chronic kidney disease with active medical management without dialysis, stage 3 (moderate): (6) Mantle cell lymphoma: Plan Lyme disease- Was admitted to the hospital on account of generalized body aches and pains and fatigue Both IgG and IgM positive [place], and does have a dog which goes indoors and outdoors No known tick exposure, but does have risk as noted Place on doxycycline 100 mg IV every 12 hours Acetaminophen 1 g by mouth every 8 hours as needed for mild pain or fever Toradol 15 mg IV every 6 hours as needed for moderate pain 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 Still has some generalized body aches and some fatigue. Review of Systems Review of Systems: All systems reviewed are negative, apart from the ones contained in the history. Physical Exam Physical Exam: The patient is awake, alert and oriented 3, well developed and well nourished, normocephalic and atraumatic, lying in bed and in no acute distress. HEENT--PERRL, EOMI, mucous membranes and oropharynx mildly dry Neck--supple. No JVD. No bruits. Thyroid normal, trachea midline, no adenopathy. Heart--normal S1 and S2. No murmurs, rubs or gallops. Lungs--clear bilaterally, no respiratory distress, no accessory muscle use. Abdomen--normal bowel sounds and soft. Extremities--no cyanosis or clubbing. No edema. Dermatologic--normal skin turgor, normal color, no abnormal lymph nodes, no rash. Neurologic--cranial nerves II through XII grossly intact. Rheumatologic--normal range of motion. Psychiatric--normal affect. Results & Data Results & Data Vital Signs (Past 12 Hours) Vital Signs Temp Pulse Pulse Resp BP Pulse Ox O2 Del Method 05/10/24 07:46 98.1 F 106 H 16 98/60 L 93 Room Air 05/10/24 00:15 97.3 F L 105 H 16 125/70 97 Room Air 05/09/24 23:00 102 H 22 127/65 97 Room Air PG Care Time/CCT Total # of Minutes Spent Total Time Spent with Patient: Total time spent is greater than 50% in coordination of care (as documented) at patient's floor/unit and/or counseling patient: Coding Level of Care Code 73539 SUB INP/OBS CARE 2/35MIN Diagnoses Lyme disease A69.20 UTI (urinary tract infection) N39.0 Generalized pain R52 Vitamin D deficiency E55.9 Chronic kidney disease with active medical management without dialysis, stage 3 (moderate) N18.30 Mantle cell lymphoma C83.10 Time Spent (min) 35
[2024-05-10] MEDS: DOXYCYCLINE HYCLATE 100 MG in DEXTROSE 5% MINI-B 100 ML IV SCH (10:38)
--- NOTE | 2024-05-10 14:50 | Electrocardiogram Report ---
Test Reason : Blood Pressure : / mmHG Vent. Rate : 092 BPM Atrial Rate : 092 BPM P-R Int : 276 ms QRS Dur : 110 ms QT Int : 356 ms P-R-T Axes : 073 019 028 degrees QTc Int : 440 ms Sinus rhythm with 1st degree A-V block Low voltage QRS Incomplete right bundle branch block Borderline ECG When compared with ECG of 03-APR-2024 12:30, TN interval has increased Incomplete right bundle branch block is now Present Nonspecific T wave abnormality now evident in Inferior leads Confirmed by Hardik Nagy ([id number]) on 05/10/2024 2:50:10 PM Referred By: REFERRED SELF Confirmed By:Hardik Nagy
[2024-05-10] MEDS: SIMVASTATIN 10 MG TAB PO SCH (20:11)
[2024-05-10] MEDS: [UNRECOGNIZED DRUG - OTHER] PO SCH (20:11)
[2024-05-10] MEDS: cefTRIAXone SODIUM 2,000 MG/50 ML BAG IV SCH (21:06)
[2024-05-11 06:52] LABS: Albumin Level 2.7 gm/dl (3.4-5.0); BUN Creatinine Ratio 11.9 (10-20); Bilirubin,Total 0.2 mg/dl (0.2-1.0); Calcium 8.2 mg/dl (8.6-10.3); Creatinine Clr Calc Pharmacy 42.3 ml/min; Est GFR (African American) 61.3 ml/min; Est GFR (Non-African American) 52.9 ml/min; Globulin 2.6 gm/dl (2.5-4.0); Magnesium 2.1 mg/dl (1.7-2.4); Potassium 4.2 mmol/L (3.5-5.1); Total Protein 5.3 gm/dl (6.0-8.3)
[2024-05-11 07:26] LABS: ALC (manual) 9.19 K/uL (1.2-3.4); Basophils # (manual) 0.14 K/uL (0-0.2); Basophils % (manual) 1 %; Eosinophils # (manual) 0.14 K/uL (0-0.50); Eosinophils % (manual) 1 %; Hemoglobin 10.1 g/dl (12.0-16.0); Lymphocytes # (manual) 3.43 K/uL (1.2-3.4); Lymphocytes % (manual) 25 %; Mean Corpuscular Hemoglobin 27.9 pg (25.0-34.0); Mean Corpuscular Hgb Conc 31.6 g/dL (32.0-36.0); Mean Corpuscular Volume 88.4 fL (80.0-100.0); Monocytes # (manual) 2.06 K/uL (0.11-0.59); Monocytes % (manual) 15 %; Neutrophils % (manual) 16 %; Platelet Count 296 K/uL (130-400); RDW Coefficient of Variation 15.2 % (11.5-14.5); RDW Standard Deviation 49.8 fL (36.4-46.3); Reactive Lymphocytes # (manual) 5.76 K/uL; Reactive Lymphocytes % (manual) 42 %; Red Blood Count 3.62 M/uL (4.20-5.40); White Blood Count 13.72 K/ul (4.8-10.8)
--- NOTE | 2024-05-11 13:59 | Electrocardiogram Report ---
Test Reason : Blood Pressure : / mmHG Vent. Rate : 081 BPM Atrial Rate : 081 BPM P-R Int : 270 ms QRS Dur : 112 ms QT Int : 388 ms P-R-T Axes : 039 013 028 degrees QTc Int : 450 ms Sinus rhythm with 1st degree A-V block Low voltage QRS Borderline ECG When compared with ECG of 10-MAY-2024 13:05, No significant change was found Confirmed by Hardik Nagy ([id number]) on 05/11/2024 1:59:26 PM Referred By: REFERRED SELF Confirmed By:Hardik Nagy
--- NOTE | 2024-05-11 14:20 | XCELERA ---
[id number]
--- NOTE | 2024-05-11 15:01 | Discharge Summary ---
Discharge Summary Date of Service May 11, 2024 Principal Dx & Hospital Course #1 = Principal Diagnosis (1) Lyme disease: (2) UTI (urinary tract infection): (3) Generalized pain: (4) Vitamin D deficiency: (5) Chronic kidney disease with active medical management without dialysis, stage 3 (moderate): (6) Mantle cell lymphoma: Plan Lyme disease- Was admitted to the hospital on account of generalized body aches and pains and fatigue Both IgG and IgM positive [place], and does have a dog which goes indoors and outdoors No known tick exposure, but does have risk as noted Received doxycycline 100 mg IV every 12 hours - discharged with PO for 21 day course EKG with 1st degree AV block, MT interval 270 - discussed with cardiology recommend repeat EKG in one week Echo: no effusions, EF 55-60% Blood cultures: Negative at 24 hours Urinary tract infection- UC: Bajwa sensitive E.Coli Received ceftriaxone - discharged with Keflex GERD- Continue pantoprazole 40 mg daily Mantle cell lymphoma- Continue pirtobrutinib 200 mg at bedtime Leukocytosis: Probably due to Lyme and UTI on the background of mantle cell lymphoma Improving Discharge to home today with PCP follow up on Wednesday. updated at bedside 05/11 Notes For Next Care Provider Admitted with weakness, fatigue and body aches. Found to be lyme positive - has lyme carditis. Will need repeat EKG Medication Changes From Visit doxycycline BID x 21 days Kelfex Admission HPI Per Admitting Provider The patient is a 79-year-old female with a past medical history including vitamin D deficiency, CKD stage III, hypercholesterolemia, GERD, and mantle cell lymphoma on pirtobrutinib. She presents to the emergency department with 2 weeks of progressively worsening fatigue, generalized weakness and all over body aches. Discharge Exam General: NAD, VS as above Resp: normal respiratory effort, lungs clear to auscultation CV: RRR, no murmur, Abd: normal bowel sounds, non tender, no hepatosplenomegaly Extremities: Moves all extremities, no edema Neuro: A&O x3, Skin: intact, no lesions noted Updated Medication List Medication Instructions Recorded Confirmed Type simvastatin 10 mg tablet 10 mg PO HS 10/22/18 05/09/24 History pantoprazole 40 mg tablet,delayed 40 mg PO QAM 12/26/19 05/09/24 History release allopurinol 100 mg tablet 100 mg PO QAM 04/03/24 05/09/24 History calcium 650 mg-vitamin D3 12.5 1 tab PO BID 04/03/24 05/09/24 History mcg-vitamin K 40 mcg chewable tablet (Viactiv) cholecalciferol (vitamin D3) 50 50 mcg PO DAILY 04/03/24 05/09/24 History mcg (2,000 unit) capsule pirtobrutinib 100 mg tablet 200 mg PO HS 04/03/24 05/09/24 History (Jaypirca) cephalexin 500 mg capsule 500 mg PO BID 4 days #8 caps 05/11/24 Rx doxycycline hyclate 100 mg tablet 100 mg PO BID 21 days #42 tabs 05/11/24 Rx Hospital Stay Data Consultations 05/09/24 23:11 ED Decision to Admit Stat Pending Results Patient Have Any Pending Studies at Discharge: Yes (blood cultures ) Discharge Instructions Given to Patient (Per Discharging Provider) Ms. Carr, You were hospitalized after having weakness and fatigue, found to be related to lyme disease. You also were treated for a UTI. The lyme disease has impacted your heart and causing changes to your EKG, you will need a repeat EKG when you are seen by your PCP. You will be treated with doxycycline twice a day for 21 days. - take this with food and a glass of water - avoid excessive sun exposure while taking, use sunscreen Continue Keflex 500mg twice a day x 4 days for the UTI. No changes to your home medications. Keep your follow up appointment with your PCP on Wednesday. You have blood cultures that are negative at 24 hours, they take 5 days to finalize, if they turn positive you will be notified. Recommend follow up with you oncologist, please notify them you were diagnosed with Lyme disease. Medications: Your medication list has been reviewed and reconciled upon discharge to ensure accuracy and continuity of care. An updated list of all your medications is included with your hospital discharge paperwork. Please review this list closely, and make note of any changes. Take your medications as instructed; do not skip a dose of your medicines. Make sure all of your doctors know every medicine you are taking (including [id number] medicines, vitamins, and supplements). Call your primary care provider before taking any new medicines (including over- the-counter medicines, vitamins, and supplements), because some of these may interact with your current medications, or may make your symptoms worse. Tell your primary care provider if you cannot afford your medications. Activity: You can do normal everyday activities as your body allows. Take rest breaks if you feel tired. Do not overexert. Stop activity if you have pain, shortness of breath or feel dizzy. Follow-up appointments: Make an appointment with your primary care physician within one week of discharge. A copy of this summary will be sent to them. Every time you see your primary care physician, or any other doctor, bring your medication list, and a list of questions. CONTACT YOUR PRIMARY CARE PROVIDER if you experience any of the following: Shortness of breath or difficulty breathing Fevers or chills Feeling tired with normal activity or experiencing dizziness or fainting Difficulty following your treatment plan, or difficulty taking medications CALL 911 OR GO TO THE EMERGENCY DEPARTMENT if you experience any of the following: Severe abdominal pain or nausea/vomiting Severe chest pain, or chest pain that radiates (moves) to your jaw or arm Sudden, severe shortness of breath or difficulty breathing Thank you for allowing us to participate in your care. Debra Al PA-C Total Time Total Time Spent Total Time Spent (In Minutes): Time spend day of discharge 40 minutes including direct patient care, medication reconciliation, documentation, review of labs and images, and coordination of care. Coding Level of Care Code 14385 INP/OBS DISCH >30 MIN Diagnoses Lyme disease A69.20 UTI (urinary tract infection) N39.0 Generalized pain R52 Vitamin D deficiency E55.9 Chronic kidney disease with active medical management without dialysis, stage 3 (moderate) N18.30 Mantle cell lymphoma C83.10
== END 2024-05-11 16:27 | disposition home or self-care (01) | DRG 868 ==
LOC: ED 19:49 → 3N 23:44 → SUATTDRO 23:44 → 3N 05-10 00:11